=== PATIENT | female | born 1980 | race African-American/Black ===

== ENCOUNTER 2017-09-21 00:33 | Emergency (ER) | payer SELFPAY ==
[~2017-09-21] VITALS: Ht 162.6 cm; Wt 90.7 kg
[~2017-09-21 00:33] MED LIST: ALBUTEROL SULF8.5 GM INH; AZITHROMYCIN250 MG ORAL; GUAIFENESIN1200 MG PO; NKM; NORCO 5-325 TA1 EACH ORAL; PREDNISONE20 MG ORAL; PROMETHAZINE-C118 M1 ORAL; ZYRTEC10 MG ORAL
[2017-09-21 00:57] VITALS: BP 131/93
[2017-09-21] MEDS ORDERED: Acetaminophen 500mg (ES) tab ORAL ONE (01:15)
[2017-09-21] MEDS ORDERED: AMOXICILLIN500 MG ORAL (01:16)
[2017-09-21] MEDS ORDERED: NEXAFED30 MG ORAL (01:16)
[2017-09-21] MEDS ORDERED: TRAMADOL HCL50 MG ORAL (01:16)
--- NOTE | 2017-09-21 01:16 | Emergency Room Report ---
History of Present Illness General Chief Complaint: General Complaint Source: Patient Present Illness HPI Is a 37-year-old female with no significant past medical history. She presents with chief complaint of facial pain on the left side with left ear pain. Onset for last couple days. Worse tonight. Also radiating to her shoulder. Worse with opening her mouth. Worse with coughing. Does have congestion but has a chronic issue for her. Pain is 9/10. She took Advil and they got better. She said before she would break out in a rash but none tonight. Allergies: Coded Allergies: ASPIRIN (Unverified Allergy, Intermediate, 11/09/14) IBUPROFEN (Unverified Allergy, Intermediate, 11/09/14) Patient History Past Medical History: see triage record, old chart reviewed Past Surgical History: none Pertinent Family History: none Social History: Denies: smoking Last Menstrual Period: 09/14/17 Now: No Immunizations: other Reviewed Nursing Documentation: PMH: Agreed, PSxH: Agreed Review of Systems Eye: Denies: eye pain, blurred vision ENT: Denies: ear pain, nose congestion, throat swelling Respiratory: Denies: cough, shortness of breath Cardiovascular: Denies: chest pain, palpitations Gastrointestinal: Denies: abdominal pain, diarrhea, nausea, vomiting Musculoskeletal: Denies: back pain, joint pain Skin: Denies: rash Neurological: Denies: headache, numbness Endocrine: Denies: increased thirst, increased urine Hematologic/Lymphatic: Denies: easy bruising All Other Systems: negative except mentioned in HPI Physical Exam Vital Signs Date Time Temp Pulse Resp B/P (MAP) Pulse Ox O2 Delivery O2 Flow Rate FiO2 09/21/17 00:57 98.1 82 131/93 12 vitals normal Sp02 EP Interpretation: reviewed, normal General Appearance: well appearing, no apparent distress, alert Head: normocephalic, atraumatic Eyes: bilateral eye PERRL, bilateral eye EOMI ENT: hearing grossly normal, other - No dental pain. Left TM show bobous myringitis Neck: full range of motion, supple, no meningismus Respiratory: chest non-tender, lungs clear, normal breath sounds Cardiovascular #1: regular rate, rhythm, no murmur Gastrointestinal: normal bowel sounds, non tender, no mass, no organomegaly, no bruit, non-distended Musculoskeletal: back normal, gait/station normal, normal range of motion Psychiatric: mood/affect normal Skin: warm/dry Medical Decision Making Diagnostic Impression: Primary Impression: Facial pain, acute Additional Impression: Otitis media, left Qualified Codes: H66.92 - Otitis media, unspecified, left ear ER Course Patient presents with a sinus infection complicated by otitis media. No evidence of dental abscess. No evidence of ACS, PE, CVA to name a few. We'll discharge him. Last Vital Signs Date Time Temp Pulse Resp B/P (MAP) Pulse Ox O2 Delivery O2 Flow Rate FiO2 09/21/17 00:57 98.1 82 131/93 12 Status: unchanged Disposition: HOME, SELF-CARE Condition: Stable Scripts Pseudoephedrine Hcl* (NEXAFED*) 30 Mg Tablet 30 MG ORAL Q6H Y for congestion, #20 TAB Prov: JEWEL ESTRADA M.D. 09/21/17 Tramadol Hcl* (ULTRAM*) 50 Mg Tablet 50 MG ORAL TID Y for For Pain, #20 TAB 0 Refills Prov: JEWEL ESTRADA M.D. 09/21/17 Amoxicillin* (AMOXIL*) 500 Mg Capsule 500 MG ORAL THREE TIMES A DAY, #21 CAP Prov: JEWEL ESTRADA M.D. 09/21/17 Additional Instructions: Followup with your Dr. in 3-5 days. Return if symptom worsen. JEWEL ESTRADA M.D. Sep 21, 2017 01:16
[2017-09-21 01:28] VITALS: BP 131/93
== END 2017-09-21 02:30 | disposition home or self-care (01) ==
LOC: EMR 01:15
DX: R51 Headache (principal); H66.92 Otitis media, unspecified, left ear; Z88.6 Allergy status to analgesic agent
CPT/HCPCS: 99283

== ENCOUNTER 2017-12-27 12:53 | Emergency (ER) | payer BC ==
[~2017-12-27] VITALS: Ht 162.6 cm; Wt 90.7 kg
[~2017-12-27 12:53] MED LIST changes: +AMOXICILLIN500 MG ORAL; +NEXAFED30 MG ORAL; +TRAMADOL HCL50 MG ORAL
--- NOTE | 2017-12-27 13:19 | Emergency Room Report ---
History of Present Illness General Chief Complaint: Upper Respiratory Illness Source: Patient Present Illness HPI 37-year-old female presents to the emergency department complaining of cough, subjective fevers, nausea and vomiting 1 week. Patient reports 3 episodes of vomiting mostly mucus. Patient reports cough is worse at night when she is lying down. reports mild ST. Patient states she measured her temperature as 100.2. She denies night sweats. Patient reports she recently returned from a trip to [facility] 3 days prior to the onset of her symptoms. Pt. reports transient imbalance/ feeling out of body when she stands up too quickly. denies vertigo. Patient states that she received appropriate vaccinations prior to her trip and she also began antimalarial medication before, she took it during and upon returning and she just finished her last dose. Patient denies abdominal pain, diarrhea or constipation. Patient denies rash. She reports many of the people she traveled with received lots of bug bites and she states she believes she may have had just one. She denies however she reports that she is sexually active and not taking control. She denies blood in the vomit or stool. Denies melena. Denies neck pain or stiffness, photophobia, significant changes in weight. Denies CP, Palpitations, LOC, AMS, Changes in Vision, Sensation, paresthesias, or a sudden severe headache. Allergies: Coded Allergies: ASPIRIN (Unverified Allergy, Intermediate, 11/09/14) IBUPROFEN (Unverified Allergy, Intermediate, 11/09/14) Patient History Past Medical History: see triage record Past Surgical History: none Pertinent Family History: none Last Menstrual Period: 12/20/17 Now: No : 0 Para: 0 Nursing Documentation-[facility] Past Medical History: No History, Except For Review of Systems All Other Systems: negative except mentioned in HPI Physical Exam Vital Signs Date Time Temp Pulse Resp B/P (MAP) Pulse Ox O2 Delivery O2 Flow Rate FiO2 12/27/17 12:59 97.7 81 15 141/92 96 Room Air 97.7 Sp02 EP Interpretation: reviewed, normal General Appearance: no apparent distress, alert, GCS 15, non-toxic Head: normocephalic, atraumatic Eyes: bilateral eye normal inspection, bilateral eye PERRL, bilateral eye EOMI ENT: hearing grossly normal, normal voice Neck: full range of motion Respiratory: chest non-tender, lungs clear, normal breath sounds, no rhonchi, no respiratory distress, no wheezing, speaking full sentences Cardiovascular #1: regular rate, rhythm Gastrointestinal: normal bowel sounds, non tender, soft Genitourinary: normal inspection, no CVA tenderness Musculoskeletal: back normal, gait/station normal, normal range of motion, non- tender Neurologic: alert, oriented x3, responsive, motor strength/tone normal, sensory intact, normal gait, speech normal, other - no ataxia, grossly normal Psychiatric: judgement/insight normal Skin: normal color, no rash, warm/dry, well hydrated Lymphatic: no adenopathy Medical Decision Making PA Attestation Dr. Sweeney is my supervising Physician whom patient management has been discussed with. Diagnostic Impression: Primary Impression: Acute viral syndrome Additional Impression: UTI (urinary tract infection) Qualified Codes: N30.01 - Acute cystitis with hematuria ER Course 37-year-old female presents to the emergency department complaining of cough, subjective fevers, nausea and vomiting 1 week. Patient reports 3 episodes of vomiting mostly mucus. Patient reports cough is worse at night when she is lying down. reports mild ST. Patient states she measured her temperature as 100.2. She denies night sweats. Patient reports she recently returned from a trip to [facility] 3 days prior to the onset of her symptoms. Pt. reports transient imbalance/ feeling out of body when she stands up too quickly. denies vertigo. Patient states that she received appropriate vaccinations prior to her trip and she also began antimalarial medication before, she took it during and upon returning and she just finished her last dose. Patient denies abdominal pain, diarrhea or constipation. Patient denies rash. She reports many of the people she traveled with received lots of bug bites and she states she believes she may have had just one. She denies however she reports that she is sexually active and not taking control. She denies blood in the vomit or stool. Denies melena. Denies neck pain or stiffness, photophobia, significant changes in weight. Denies CP, Palpitations, LOC, AMS, Changes in Vision, Sensation, paresthesias, or a sudden severe headache. Ddx considered but are not limited to URI, pneumonia, PE, strep pharyngitis, meningitis, influenza, Typhoid fever, malaria, yellow fever, hepatitis A. Just to name a few. Vital signs: Pt. is afebrile, the remaining VS are WNL H&PE are most consistent with Viral Syndrome suspicious for Influenza will treat clinically - no meningeal signs, Lungs are clear and oropharynx is not involved, no evidence of bacterial infection at this time. ORDERS: -UA: bacteria and increased WBC's and Leuks= Infection. Urine :Negative UDS: all negative -Orthostatic VS: Positive- drop in systolic BP >10 from lying to standing, no appreciable change with sitting. ED INTERVENTIONS: -1 Liter NS bolus -Zofran 4mg IV -Pt. given strict ED return precautions will do conservative treatment, rest and fluids as outpatient DISCHARGE: At this time pt. is stable for d/c to home. Will provide printed patient care instructions, and any necessary prescriptions. Care plan and follow up instructions have been discussed with the patient prior to discharge. Labs Test 12/27/17 13:46 Urine Color Pale yellow Urine Appearance Clear Urine pH 7 (4.5-8.0) Urine Specific [place]aver 1.010 (1.005-1.035) Urine Protein 1+ (NEGATIVE) Urine Glucose (UA) Negative (NEGATIVE) Urine Ketones Negative (NEGATIVE) Urine Occult Blood Negative (NEGATIVE) Urine Nitrite Negative (NEGATIVE) Urine Bilirubin Negative (NEGATIVE) Urine Urobilinogen Normal MG/DL (0.0-1.0) Urine Leukocyte Esterase 2+ (NEGATIVE) Urine RBC 0-2 /HPF (0 - 2) Urine WBC 5-10 /HPF (0 - 2) Urine Squamous Epithelial Cells Few /LPF (NONE/OCC) Urine Bacteria Occasional /HPF (NONE) Urine HCG, Qualitative Negative (NEGATIVE) Urine Opiates Screen Negative (NEGATIVE) Urine Barbiturates Screen Negative (NEGATIVE) Phencyclidine (PCP) Screen Negative (NEGATIVE) Urine Amphetamines Screen Negative (NEGATIVE) Urine Benzodiazepines Screen Negative (NEGATIVE) Urine Cocaine Screen Negative (NEGATIVE) Urine Marijuana (THC) Screen Negative (NEGATIVE) Last Vital Signs Date Time Temp Pulse Resp B/P (MAP) Pulse Ox O2 Delivery O2 Flow Rate FiO2 12/27/17 12:59 97.7 81 15 141/92 96 Room Air 97.7 Disposition: HOME, SELF-CARE Condition: Stable Scripts Fluconazole (FLUCONAZOLE) 100 Mg Tablet 100 MG ORAL DAILY, #2 TAB 0 Refills Prov: Kathe Martinez P.A. 12/27/17 Nitrofurantoin Monohyd/M-Cryst* (MACROBID 100 MG*) 100 Mg Capsule 100 MG ORAL EVERY 12 HOURS for 5 Days, #10 CAP Prov: Kathe Martinez 12/27/17 Acetaminophen* (TYLENOL EXTRA STRENGTH*) 500 Mg Tablet 500 MG ORAL Q6H PRN for Mild Pain/Temp > 100.5, #20 TAB 0 Refills Prov: Kathe Martinez 12/27/17 Codeine/Promethazine Hcl* (PROMETHAZINE-CODEINE SYRUP*) 118 Ml Syrup 5 ML ORAL Q6H PRN for For Cough, #120 ML 0 Refills Prov: Kathe Martinez 12/27/17 Departure Forms: Return to Work Return to Work Date: Jan 01, 2018 Work Restrictions: None Return to Full Activity: Jan 01, 2018 Patient Instructions: Urinary Tract Infection, [id number], Viral Respiratory Infection, [id number] Additional Instructions: Take medications as directed. Follow up with a Primary Care Provider in 3 days, even if your symptoms have resolved. --Please review list of primary care clinics, if you do not already have a primary care provider Return sooner to ED if new symptoms occur, or current symptoms become worse. Do not drink alcohol, drive, or operate heavy machinery while taking Cough as this may cause drowsiness. - Please note that this Emergency Department Report was dictated using [employer] adjuster technology software, occasionally this can lead to erroneous entry secondary to interpretation by the dictation equipment. Kathe Martinez Dec 27, 2017 13:19
[2017-12-27 13:40] VITALS: BP_SYST 128; BP_SYST 133; BP_SYST 141; BP_SYST 148; BP_DIAS 77; BP_DIAS 83; BP_DIAS 90; BP_DIAS 92
[2017-12-27 14:07] LABS: APPEARANCE,URINE CLEAR; BILIRUBIN, URINE NEGATIVE (NEGATIVE); COLOR,URINE PALE YELLOW; GLUCOSE, URINE (UA) NEGATIVE (NEGATIVE); KETONES,URINE NEGATIVE (NEGATIVE); LEUKOCYTE ESTERASE ,URINE 2+ (NEGATIVE); NITRITE,URINE NEGATIVE (NEGATIVE); PH,URINE 7 (4.5-8.0); PROTEIN,URINE 1+ (NEGATIVE); UROBILINOGEN,URINE NORMAL MG/DL (0.0-1.0)
[2017-12-27] MEDS ORDERED: NITROFURANTOIN100 M2 ORAL (14:53)
[2017-12-27] MEDS ORDERED: TYLENOL EXTRA500 MG ORAL (14:53)
[2017-12-27] MEDS ORDERED: FLUCONAZOLE100 MG ORAL (14:53)
[2017-12-27] MEDS ORDERED: PROMETHAZINE-C118 M1 ORAL (14:53)
[2017-12-27 15:14] VITALS: BP 136/87
== END 2017-12-27 15:18 | disposition home or self-care (01) ==
LOC: EMR 13:28
DX: B34.9 Viral infection, unspecified (principal); N39.0 Urinary tract infection, site not specified; Z88.6 Allergy status to analgesic agent
CPT/HCPCS: 80307; 81003; 81025; 96374; 96375; 99284; J2405